=== PATIENT | female | born 1970 | race Caucasian/White ===

== ENCOUNTER 2016-04-29 12:52 | Emergency (ER) | payer OTHER | END 2016-04-29 14:06 | disposition home or self-care (01) | DX: S46.012A Strain of muscle(s) and tendon(s) of the rotator cuff of left shoulder, initial encounter (principal); X50.9XXA Other and unspecified overexertion or strenuous movements or postures, initial encounter; Y93.89 Activity, other specified; Y92.89 Other specified places as the place of occurrence of the external cause; Y99.0 Civilian activity done for income or pay; M19.012 Primary osteoarthritis, left shoulder ==

== ENCOUNTER 2016-07-25 13:15 | Outpatient (CLI) | payer OTHER | END 2016-07-25 13:16 | disposition home or self-care (01) | DX: S43.432A Superior glenoid labrum lesion of left shoulder, initial encounter (principal); M67.814 Other specified disorders of tendon, left shoulder; M19.012 Primary osteoarthritis, left shoulder; M25.512 Pain in left shoulder; M70.912 Unspecified soft tissue disorder related to use, overuse and pressure, left shoulder ==

== ENCOUNTER 2016-11-22 12:46 | Emergency (ER) | payer OTHER ==
--- NOTE | 2016-11-22 12:53 | ED Physician Documentation ---
History of Present Illness - Stated complaint Stated Complaint: ALLERGIC REACTION - History obtained from History obtained from: Patient - History of Present Illness Timing: Other (46-year-old woman with multiple drug and environmental allergies felt like she got an allergic reaction around 1205 today. She took some Benadryl and later her EpiPen. She felt flushed and had chest pressure. She is not sure she was actually exposed to anything specific. She was at work at the time. She has no other health problems other than a bad shoulder, no diabetes or heart issues.) Review of Systems Ten Systems: 10 systems reviewed and negative Constitutional: denies: Fever, Chills Nose: denies: Rhinorrhea / runny nose, Congestion Throat: denies: Sore throat Cardiac: reports: Chest pain / pressure. denies: Palpitations, Pedal edema, Calf pain Respiratory: denies: Cough GI: denies: Abdominal Pain PD PAST MEDICAL HISTORY - Past Medical History Past Medical History: Yes Respiratory: Sleep apnea Neuro: Headache/migraine Psych: Anxiety - Past Surgical History Past Surgical History: Yes General: Bowel surgery Ortho: Other - Present Medications Home Medications: Ambulatory Orders Medication Instructions Recorded Confirmed Cetirizine [ZyrTEC] 30 mg PO TID 06/11/13 04/29/16 Cimetidine [Tagamet Hb] 800 mg PO BID 06/11/13 04/29/16 Diphenhydramine HCl [Benadryl] 25 mg PO .FREQ 06/11/13 04/29/16 EPINEPHrine [Epipen] 0.3 mg IM ONCE 06/11/13 04/29/16 Montelukast Sodium [Singulair] 10 mg PO DAILY 06/11/13 04/29/16 Zolmitriptan [Zomig] 5 mg PO .FREQ 06/11/13 04/29/16 Fluticasone [Flonase] 50 mcg INH BID 10/10/15 04/29/16 Gabapentin 1 tab PO BID 10/10/15 04/29/16 Topiramate 1 tab PO DAILY 10/10/15 04/29/16 Hydrocodone/Acetaminophen [[place] 1 each PO Q6H PRN #15 tablet 04/29/16 5-325 Tablet] Epinephrine [Epipen 2-Alex] 0.3 mg IJ ONCE PRN #1 unit 11/22/16 - Allergies Allergies/Adverse Reactions: Allergies Allergy/AdvReac Type Severity Reaction Status Date / Time ketorolac tromethamine * Allergy Rash Verified 11/22/16 12:56 [From Toradol] perfume Allergy Unknown Verified 11/22/16 12:56 Sulfa (Sulfonamide Allergy Unknown Verified 11/22/16 12:56 Antibiotics) tramadol Allergy Rash Verified 11/22/16 12:56 - Social History Does the pt smoke?: No Smoking Status: Never smoker Does the pt drink ETOH?: No Does the pt have substance abuse?: No - Family History Family history: reports: Non contributory - Immunizations Immunizations are current?: Yes - POLST Patient has POLST: No POLST Status: Full Code PD ED PE NORMAL - Vitals Vital signs reviewed: Yes - General General: Alert and oriented X 3, Other (Shaky) - HEENT HEENT: PERRL, EOMI, Pharynx benign - Neck Neck: Supple, no meningeal sign, No bony TTP - Cardiac Cardiac: RRR, No murmur - Respiratory Respiratory: No respiratory distress, Clear bilaterally - Abdomen Abdomen: Normal bowel sounds, Soft, Non tender - Derm Derm: Normal color, Warm and dry, No rash - Extremities Extremities: No edema, No calf tenderness / cord - Neuro Neuro: Alert and oriented X 3, Normal speech - Psych Psych: Normal mood, Normal affect Results - Vitals Vitals: Vital Signs - 24 hr 11/22/16 11/22/16 11/22/16 12:50 13:26 13:52 Temperature 37.6 C H Heart Rate 97 86 93 Respiratory 18 14 14 Rate Blood Pressure 185/86 H 160/88 H 147/83 H O2 Saturation 100 100 100 Oxygen O2 Source Room air - EKG (time done) 1253 Rate: Rate (enter#) (88) Rhythm: NSR [place]: Normal Intervals: Normal CT QRS: Normal Ischemia: Normal ST segments Computer interpretation: Agree with computer - Labs Labs: Laboratory Tests 11/22/16 11/22/16 11/22/16 13:19 13:19 13:19 WBC 9.3 RBC 4.65 Hgb 14.1 Hct 41.7 MCV 89.8 MCH 30.5 MCHC 33.9 RDW 13.3 Plt Count 335 MPV 8.3 Neut # 6.4 Lymph # 2.4 [place] # 0.4 Eos # 0.0 Baso # 0.0 Absolute Nucleated RBC 0.00 Nucleated RBCs 0.1 Sodium 139 Potassium 3.1 L Chloride 105 Carbon Dioxide 20 L Anion Gap 14.0 H BUN 9 Creatinine 0.9 Estimated GFR (MDRD) 68 L Glucose 148 H Calcium 9.7 Total Bilirubin 1.0 AST 19 ALT 17 Alkaline Phosphatase 55 Troponin I < 0.04 Total Protein 7.5 Albumin 4.6 Globulin 2.9 Albumin/Globulin Ratio 1.6 Lipase 29 PD MEDICAL DECISION MAKING - ED course ED course: 46-year-old woman with multiple allergies presents with symptoms that she says her reminiscent of prior allergic reaction. She does not have any signs of anaphylaxis. An EKG was done given her chest pressure, however was completely nonischemic. Her symptoms quickly abated after some time in the emergency department. Note her potassium of 3.1, this is likely due to epinephrine administration just prior to arrival and should resolve on its own without specific intervention. Departure - Departure Disposition: 01 Home, Self Care Clinical Impression: Allergic reaction Qualifiers: Encounter type: initial encounter Qualified Code(s): T78.40XA - Allergy, unspecified, initial encounter Condition: Good Record reviewed to determine appropriate education?: Yes Instructions: ED Allergic Reaction General Other Prescriptions: Epinephrine [Epipen 2-Alex] 0.3 mg IJ ONCE PRN #1 unit PRN Reason: Allergy Symptoms Comments: Return if symptoms recur or new symptoms present. Follow-up with your physician for a blood pressure recheck, it was not surprisingly somewhat high here which is common in the emergency department.
[2016-11-22] MEDS ORDERED: DEXAMETHASONE 10 MG/ML VIAL IVP STA (13:02)
[2016-11-22] MEDS ORDERED: DEXAMETHASONE 10 MG/ML VIAL ONE (13:14)
[2016-11-22 13:35] LABS: BASOPHILS % (AUTO) 0.5 %; EOSINOPHILS % (AUTO) 0.3 %; HCT - HEMATOCRIT 41.7 % (37.0-47.0); HGB - HEMOGLOBIN 14.1 g/dL (12.0-16.0); LYMPHOCYTES # (AUTO) 2.4 10^3/uL (1.5-3.5); LYMPHOCYTES % (AUTO) 25.7 %; MEAN CORPUSCULAR HEMOGLOBIN 30.5 pg (27.0-31.0); MEAN CORPUSCULAR HGB CONC 33.9 g/dL (32.0-36.0); MEAN CORPUSCULAR VOLUME 89.8 fL (81.0-99.0); MEAN PLATELET VOLUME 8.3 fL (7.9-10.8); MONOCYTES # (AUTO) 0.4 10^3/uL (0.0-1.0); MONOCYTES % (AUTO) 4.6 %; NEUTROPHILS # (AUTO) 6.4 10^3/uL (1.5-6.6); NEUTROPHILS % (AUTO) 68.9 %; NUCLEATED RED BLOOD CELLS AUTO 0.1 /100WBC; RED BLOOD COUNT 4.65 10^6/uL (4.20-5.40); RED CELL DISTRIBUTION WIDTH 13.3 % (12.0-15.0); UNCORRECTED WHITE BLOOD COUNT 9.3 x10^3/uL; WHITE BLOOD COUNT 9.3 x10^3/uL (4.8-10.8)
[2016-11-22 13:41] LABS: ALBUMIN/GLOBULIN RATIO 1.6 (1.0-2.2); CALCIUM 9.7 mg/dL (8.5-10.3); CREATININE 0.9 mg/dL (0.4-1.0); POTASSIUM 3.1 mmol/L (3.5-5.0); TOTAL PROTEIN 7.5 g/dL (6.7-8.2)
[2016-11-22 13:53] VITALS: BP 147/83
== END 2016-11-22 14:06 | disposition home or self-care (01) ==
LOC: ED 12:46
DX: T78.40XA Allergy, unspecified, initial encounter (principal); X58.XXXA Exposure to other specified factors, initial encounter; R07.89 Other chest pain
CPT/HCPCS: 36415; 80053; 83690; 84484; 85025; 93005; 96374; 99283; 99284

== ENCOUNTER 2017-01-17 16:23 | Outpatient (CLI) | payer OTHER ==
--- NOTE | 2017-01-18 11:38 | MRI Report ---
EXAM: MRI CERVICAL SPINE WITHOUT CONTRAST EXAM DATE: 01/17/2017 05:32 PM. CLINICAL HISTORY: Left neck pain. COMPARISONS: None. TECHNIQUE: Multiplanar, multisequence T1-weighted and fluid-sensitive sequences of the cervical spine without contrast. Other: None. FINDINGS: Neurologic Structures: The visualized posterior fossa structures are unremarkable. No signal abnormal ity in the visualized spinal cord. Alignment: Normal. No scoliosis or spondylolisthesis. Bone Marrow: No gross fractures or bone lesions. No marrow edema. Interspace Levels/Facets: C1-C2: Unremarkable on sagittal series. C2-C3: Unremarkable. C3-C4: Unremarkable. Minimal left-sided degenerative uncovertebral change is noted. No stenosis. C4-C5: Unremarkable. C5-C6: Unremarkable. C6-C7: Unremarkable. C7-T1: Unremarkable. Musculature: Normal. No edema or fatty atrophy. Other: The paravertebral and prevertebral soft tissues are normal. IMPRESSION: 1. Unremarkable MRI of the cervical spine. Cervical spinal cord is normal in appearance. No significa nt spondylosis or stenosis. [facility] Referring Provider Line: [phone] SITE ID: [id number]
== END 2017-01-17 16:24 | disposition home or self-care (01) ==
LOC: DI 16:23
PROVIDERS: ATTEND Orthopaedic Surgery
DX: M54.2 Cervicalgia (principal)
CPT/HCPCS: 72141

== ENCOUNTER 2017-03-05 06:13 | Day surgery (SDC) | payer OTHER ==
[2017-03-05 06:42] LABS: HCG UR QUAL NEGATIVE
[2017-03-05] MEDS ORDERED: LACTATED RINGERS 1,000 ML IV ONE (06:54)
[2017-03-05] MEDS ORDERED: ROPIVACAINE 0.5% PF 20 ML AMPULE EP ONE (08:00)
[2017-03-05] MEDS ORDERED: ePHEDrine 50 MG/ML VIAL IVP ONE (08:00)
[2017-03-05] MEDS ORDERED: MIDAZOLAM 2 MG/2 ML VIAL IVP ONE (08:00)
[2017-03-05] MEDS ORDERED: ONDANSETRON 4 MG/2 ML VIAL IVP ONE (08:00)
[2017-03-05] MEDS ORDERED: DEXAMETHASONE 4 MG/ML VIAL IVP ONE (08:00)
[2017-03-05] MEDS ORDERED: PROPOFOL 200 MG/20 ML VIAL IVP ONE (08:00)
[2017-03-05] MEDS ORDERED: PHENYLEPHRINE 50 MG/5 ML VIAL IV ONE (08:00)
[2017-03-05] MEDS ORDERED: ROCURONIUM 50 MG/5 ML VIAL IVP ONE (08:00)
[2017-03-05] MEDS ORDERED: fentaNYL 100 MCG/2 ML VIAL IVP ONE (08:00)
[2017-03-05] MEDS ORDERED: EPINEPHrine 1 MG/ML VIAL IM ONE (08:00)
[2017-03-05] MEDS ORDERED: BUPIVACAINE 0.25%-EPI 1:200000 PF 30 ML VIAL SUBQ ONE ×2 (08:29)
[2017-03-05 11:29] VITALS: BP 113/69
--- NOTE | 2017-03-05 11:44 | OPERATIVE REPORT ---
DATE OF SURGERY: 03/05/2017 00:00:00 PREOPERATIVE DIAGNOSES 1. Left shoulder impingement syndrome with labral tear. 2. Possible cuff tear. 3. Acromioclavicular joint arthritis. POSTOPERATIVE DIAGNOSES 1. Left shoulder labral tear. 2. Subacromial impingement. 3. Acromioclavicular joint arthritis. NAME OF PROCEDURE: Left shoulder examination under anesthesia, arthroscopy, debridement of superior aspect of the patient's labrum, and subacromial decompression and arthroscopic distal clavicle excisi on. SURGEON: Vivienne Trujillo MD ANESTHESIA: General by Marielle Zabala CRNA. 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 She had ongoing shoulder pain that did not resp ond to conservative measures, including injection and physical therapy. Ultimately, an MRI was perfor med revealing a labral tear of the shoulder. Arthroscopy was recommended because of failure to advanc e with nonoperative treatment and continuing shoulder pain. FINDINGS AT SURGERY: The patient's shoulder exam showed full range of motion and no instability with negative sulcus sign and no popping or unusual grating on exam. The patient's arthroscopic glenohumer al exam showed intact articular cartilage, mild fraying of the anterior labrum, and more significant fraying of the superior labrum posterior to the biceps anchor. There was no intrasubstance tear or di sruption of the labrum itself, other than the fraying. The biceps tendon was intact and sitting in it s groove and not unstable. Rotator cuff intact. There was no instability detected on stress. The dami ent's subscapularis attachment was intact. In the subacromial space, there was minimal inflammation b ut a fairly prominent CA ligament, type 2 acromion, prominent and arthritic distal clavicle denuded o f articular cartilage. DESCRIPTION OF OPERATIVE PROCEDURE: The patient was taken to the operating room, was given a general anesthetic and then positioned beach chair. She was sterilely prepped and draped in a standard fashio n. Arthroscopy was undertaken after marking landmarks with a marking pen, doing arthroscopy of the gl enohumeral space and establishing a posterior approach, and then an anterior portal for insertion of the surface energy device to debride the frayed superior labrum and some of the anterior labrum. The probe was then inserted and a careful examination was made of the entire shoulder joint and its struc tures, and no other abnormality found. The biceps in particular was drawn proximally and examined, an d no splits or degeneration were identified. The scope was then positioned subacromial, and a lateral acromial portal was established, and a thorough decompression was done of the subacromial space, res ecting the acromion down to a type A, and resecting CA ligament remnant, and exposing the distal clav icle, which was noted to have a denuding absence of cartilage on its distal clavicle articular surfac e. Decompression of that area was performed, resecting about 8 mm of distal clavicle with a bur. At t he conclusion, the area was irrigated thoroughly. It was noted that the aspect of some of the superio r and posterior capsule of the AC joint was pristine and left intact to support the distal clavicle. The scope was withdrawn. Portals were closed with interrupted nylon suture, and sterile dressings wer e applied. The patient was then taken to the recovery room in stable condition, where a sling was zee lied. ESTIMATED BLOOD LOSS: 20 mL. COMPLICATIONS: None. SPONGE AND NEEDLE COUNTS: Correct. JOB #: [id number] EXT JOB #:[id number]
== END 2017-03-05 06:14 | disposition home or self-care (01) ==
LOC: SDS 06:13
PROVIDERS: ATTEND Orthopaedic Surgery
PROC: 0RBK4ZZ Excision of Left Shoulder Joint, Percutaneous Endoscopic Approach (ICD-10-PCS; 2017-03-05)
PROC: 0PBB4ZZ Excision of Left Clavicle, Percutaneous Endoscopic Approach (ICD-10-PCS; 2017-03-05)
PROC: 0RNK4ZZ Release Left Shoulder Joint, Percutaneous Endoscopic Approach (ICD-10-PCS; principal; 2017-03-05 07:30)
DX: S43.492A Other sprain of left shoulder joint, initial encounter (principal); M75.42 Impingement syndrome of left shoulder; M19.012 Primary osteoarthritis, left shoulder
CPT/HCPCS: 29822; 29824; 29826; 81025; J0171; J7120